=== PATIENT | female | born 1970 | race Caucasian/White ===

== ENCOUNTER → 2020-09-24 | Outpatient (CLI) | payer OTHER ==
[~2020-09-24] MED LIST: KEFLEX500 M1 PO; NORCO 5-325 TA1 EAC2 PO; ZOFRAN ODT4 MG DISSOLVE
== END ==
LOC: M.LAB 16:04
PROVIDERS: ATTEND Orthopaedic Surgery
DX: Z01.812 Encounter for preprocedural laboratory examination (principal); Z20.828 Contact with and (suspected) exposure to other viral communicable diseases